=== PATIENT | male | born 1945 | race Caucasian/White ===

== ENCOUNTER 2021-09-12 15:48 | Inpatient (IN) ==
[2021-09-12] MEDS ORDERED: 0.9 % Sodium Chloride 1,000 ML IVC ONE (16:13)
[2021-09-12 16:55] LABS: Basophils % 0.3 %; Eosinophils # 0.1 K/mcL (0.0-0.6); Hematocrit 41.3 % (37.5-50.1); Hemoglobin 13.9 g/dL (12.9-16.9); Immature Granulocytes % 0.4 % (0-4); Lymphocytes # 0.8 K/mcL (0.6-4.6); Lymphocytes % 5.7 %; Mean Corpuscular HGB Conc 33.7 g/dL (31.6-35.5); Mean Corpuscular Hemoglobin 32.9 pg (28.0-33.3); Mean Corpuscular Volume 97.6 fL (83.0-100.0); Mean Platelet Volume 9.9 fL (9.4-12.4); Monocytes % 7.1 %; Neutrophils # 11.5 K/mcL (1.6-8.9); Platelet Count 220 K/mcL (140-400); Red Blood Count 4.23 M/mcL (4.19-5.50); Red Cell Distribution Width 13.2 % (11.5-14.5); Segmented Neutrophils % 85.5 %; White Blood Count 13.4 K/mcL (4.3-11.1)
[2021-09-12 17:02] LABS: Bacteria,Urine Few per hpf (None-Few); Bilirubin,Urine Negative (Negative); Blood,Urine Negative (Negative); Clarity,Urine Clear (Clear); Color,Urine Yellow (Yellow); Glucose,Urine (UA) Normal (Normal); Ketones,Urine Negative (Negative); Leukocyte Esterase,Urine Negative (Negative); Mucus,Urine Few per lpf (None-Few); Nitrite,Urine Negative (Negative); Protein,Urine 50 mg/dL (Neg-Trace); RBC,Urine 15-30 per hpf (0-3); Specific Gravity,Urine 1.024 (1.010-1.025); Squamous Epithelial Cell,Urine Few per hpf (None-Few); WBC,Urine 0-3 per hpf (0-3)
[2021-09-12 17:03] LABS: INR 1.3; Prothrombin Time 14.6 Seconds (9.4-12.1)
[2021-09-12 17:06] LABS: Activated Partial Thrombo Time 35.3 Seconds (26.0-36.0)
[2021-09-12 17:08] LABS: Alanine Aminotransferase 13 Units/L (7-52); Albumin 3.4 g/dL (3.5-5.7); Alkaline Phosphatase 101 Units/L (34-104); Aspartate Amino Transferase 16 Units/L (13-39); BUN/Creatinine Ratio 15 (6-26); Bilirubin,Direct 0.4 mg/dL (0.0-0.2); Bilirubin,Indirect 0.9 mg/dL (0.0-1.0); Bilirubin,Total 1.3 mg/dL (0.3-1.0); Blood Urea Nitrogen 16 mg/dL (8-23); Calcium 8.9 mg/dL (8.6-10.3); Carbon Dioxide 27 mEq/L (23-29); Chloride 98 mEq/L (98-107); Globulin 3.5 g/dL (2.4-3.5); Glucose 170 mg/dL (70-105); Magnesium 1.8 mg/dL (1.6-2.6); Osmolality,Calculated 279 (280-300); Potassium 4.1 mEq/L (3.5-5.1); Sodium 132 mEq/L (136-145); Total Protein 6.9 g/dL (6.4-8.9); Troponin I < 0.03 ng/mL (< 0.04); eGFR For African Americans > 60 (> 60); eGFR For Non-African Americans > 60 (> 60)
[2021-09-12] MEDS ORDERED: Ipratropium/Albuterol Neb 3 ML IH ONE (17:32)
[2021-09-12] MEDS ORDERED: *HR* OxyCODONE/APAP 7.5/325 TABLET PO ONE (17:33)
[2021-09-12 17:36] LABS: Adenovirus Not Detected (Not Detect); Bordetella Pertussis Not Detected (Not Detect); Chlamydophila pneumoniae Not Detected (Not Detect); Coronavirus 229E Not Detected (Not Detect); Coronavirus HKU1 Not Detected (Not Detect); Coronavirus NL63 Not Detected (Not Detect); Coronavirus OC43 Not Detected (Not Detect); Human Metapneumovirus Not Detected (Not Detect); Human Rhinovirus/Enterovirus DETECTED (Not Detect); Influenza A Subtype 2009 H1 Not Detected (Not Detect); Influenza B Not Detected (Not Detect); Mycoplasma pneumoniae Not Detected (Not Detect); Parainfluenza Virus 1 Not Detected (Not Detect); Parainfluenza Virus 2 Not Detected (Not Detect); Parainfluenza Virus 3 Not Detected (Not Detect); Parainfluenza Virus 4 Not Detected (Not Detect); Respiratory Syncytial Virus Not Detected (Not Detect); SARS-CoV-2 Not Detected (Not Detect)
[2021-09-12] MEDS ORDERED: Acetaminophen 325 MG TABLET PO PRN (18:25)
[2021-09-12] MEDS ORDERED: Naloxone 0.4 MG/ML INJ IVP PRN (18:25)
[2021-09-12] MEDS ORDERED: Ondansetron 4 MG/2 ML VIAL IVP PRN (18:25)
[2021-09-12] MEDS ORDERED: D5% in Water 1,000 ML IVC PRN (21:14)
[2021-09-12] MEDS ORDERED: Dextrose Gel 15 GM/37.5 ML TUBE PO PRN ×2 (21:14)
[2021-09-12] MEDS ORDERED: *HR* Dextrose 50 % in Water (Syg) 50 ML SYRINGE IVP PRN (21:14)
[2021-09-12] MEDS ORDERED: *HR* Metoprolol 5 MG/5 ML VIAL IVP ONE (21:26)
[2021-09-12] MEDS: Metoprolol XL (24 HR) Succ 25 MG TAB.ER.24H PO SCH (21:50)
[2021-09-12] MEDS: Apixaban 5 MG TABLET PO SCH (21:50)
[2021-09-12] MEDS ORDERED: Perflutren Lipid Microsphere 1.3 ML in 0.9 % Sodium Chloride 8.7 ML IVP PRN (22:03)
[2021-09-13] MEDS ORDERED: 0.9 % Sodium Chloride 500 ML IVC ONE (00:04)
[2021-09-13] MEDS ORDERED: Amiodarone Premix 360 MG/200 ML BAG IVC ONE (01:55)
[2021-09-13] MEDS ORDERED: Amiodarone Premix 150 MG/100 ML BAG IVPB ONE (01:55)
[2021-09-13] MEDS ORDERED: 0.9 % Sodium Chloride 1,000 ML IVC ONE (05:00)
[2021-09-13 05:28] LABS: Troponin I < 0.03 ng/mL (< 0.04)
[2021-09-13 05:31] LABS: Basophils # 0.1 K/mcL (0.0-0.2); Basophils % 0.4 %; Eosinophils # 0.2 K/mcL (0.0-0.6); Eosinophils % 1.2 %; Hematocrit 39.6 % (37.5-50.1); Hemoglobin 13.3 g/dL (12.9-16.9); Immature Granulocytes % 0.7 % (0-4); Lymphocytes % 7.3 %; Mean Corpuscular HGB Conc 33.6 g/dL (31.6-35.5); Mean Corpuscular Hemoglobin 32.2 pg (28.0-33.3); Mean Corpuscular Volume 95.9 fL (83.0-100.0); Mean Platelet Volume 10.5 fL (9.4-12.4); Monocytes # 1.3 K/mcL (0.0-1.3); Monocytes % 8.8 %; Neutrophils # 11.6 K/mcL (1.6-8.9); Nucleated Red Blood Cells 0.1 /100 WBC (0); Platelet Count 219 K/mcL (140-400); Red Blood Count 4.13 M/mcL (4.19-5.50); Red Cell Distribution Width 13.3 % (11.5-14.5); Segmented Neutrophils % 81.6 %; White Blood Count 14.2 K/mcL (4.3-11.1)
[2021-09-13 05:38] LABS: BUN/Creatinine Ratio 14 (6-26); Blood Urea Nitrogen 15 mg/dL (8-23); Calcium 8.3 mg/dL (8.6-10.3); Carbon Dioxide 22 mEq/L (23-29); Chloride 102 mEq/L (98-107); Glucose 183 mg/dL (70-105); Magnesium 1.8 mg/dL (1.6-2.6); Osmolality,Calculated 282 (280-300); Potassium 4.2 mEq/L (3.5-5.1); Sodium 133 mEq/L (136-145); eGFR For African Americans > 60 (> 60); eGFR For Non-African Americans > 60 (> 60)
[2021-09-13] MEDS ORDERED: Amiodarone Premix 360 MG/200 ML BAG IVC SCH (07:55)
[2021-09-13] MEDS: Apixaban 5 MG TABLET PO SCH ×2 (08:05→20:09)
[2021-09-13] MEDS: Metoprolol XL (24 HR) Succ 25 MG TAB.ER.24H PO SCH ×2 (08:05→20:09)
[2021-09-13] MEDS: Venlafaxine XR (24 HR) 75 MG CAP.ER.24H PO SCH (08:05)
[2021-09-13] MEDS: Insulin LISPRO 300 UNITS/3 ML VIAL SUBQ SCH ×4 (08:05→20:09)
[2021-09-13] MEDS ORDERED: Gabapentin 300 MG CAPSULE PO SCH (09:00)
[2021-09-13] MEDS ORDERED: Nystatin POWDER 30 GM BOTTLE TP PRN (11:01)
[2021-09-13] MEDS: Gabapentin 300 MG CAPSULE PO SCH ×2 (15:03→20:08)
[2021-09-13] MEDS: Melatonin 3 MG TABLET PO SCH (20:08)
[2021-09-13] MEDS: Finasteride 5 MG TABLET PO SCH (20:08)
[2021-09-13] MEDS ORDERED: Apixaban 5 MG TABLET PO SCH (21:00)
[2021-09-14] MEDS: GuaiFENesin Liq 200 MG/10 ML UDC PO PRN (01:19)
[2021-09-14 06:09] LABS: Hematocrit 37.6 % (37.5-50.1); Hemoglobin 12.7 g/dL (12.9-16.9); Mean Corpuscular HGB Conc 33.8 g/dL (31.6-35.5); Mean Corpuscular Hemoglobin 32.5 pg (28.0-33.3); Mean Corpuscular Volume 96.2 fL (83.0-100.0); Mean Platelet Volume 10.3 fL (9.4-12.4); Platelet Count 209 K/mcL (140-400); Red Blood Count 3.91 M/mcL (4.19-5.50); Red Cell Distribution Width 13.2 % (11.5-14.5); White Blood Count 14.4 K/mcL (4.3-11.1)
[2021-09-14 06:16] LABS: BUN/Creatinine Ratio 18 (6-26); Blood Urea Nitrogen 16 mg/dL (8-23); Calcium 8.5 mg/dL (8.6-10.3); Carbon Dioxide 26 mEq/L (23-29); Chloride 104 mEq/L (98-107); Glucose 185 mg/dL (70-105); Osmolality,Calculated 284 (280-300); Potassium 4.4 mEq/L (3.5-5.1); Sodium 134 mEq/L (136-145); eGFR For African Americans > 60 (> 60); eGFR For Non-African Americans > 60 (> 60)
[2021-09-14] MEDS: Insulin LISPRO 300 UNITS/3 ML VIAL SUBQ SCH ×4 (07:43→20:09)
[2021-09-14] MEDS: Venlafaxine XR (24 HR) 75 MG CAP.ER.24H PO SCH (07:45)
[2021-09-14] MEDS: Gabapentin 300 MG CAPSULE PO SCH ×3 (07:46→20:24)
[2021-09-14] MEDS: Metoprolol XL (24 HR) Succ 25 MG TAB.ER.24H PO SCH ×2 (07:52→20:23)
[2021-09-14] MEDS: Apixaban 5 MG TABLET PO SCH ×2 (07:52→20:23)
[2021-09-14] MEDS ORDERED: Venlafaxine XR (24 HR) 75 MG CAP.ER.24H PO SCH (09:00)
[2021-09-14] MEDS: Melatonin 3 MG TABLET PO SCH (20:23)
[2021-09-14] MEDS: Finasteride 5 MG TABLET PO SCH (20:23)
[2021-09-15 05:59] LABS: BUN/Creatinine Ratio 17 (6-26); Blood Urea Nitrogen 15 mg/dL (8-23); Calcium 8.6 mg/dL (8.6-10.3); Carbon Dioxide 26 mEq/L (23-29); Chloride 100 mEq/L (98-107); Glucose 178 mg/dL (70-105); Osmolality,Calculated 279 (280-300); Potassium 4.2 mEq/L (3.5-5.1); Sodium 132 mEq/L (136-145); eGFR For African Americans > 60 (> 60); eGFR For Non-African Americans > 60 (> 60)
[2021-09-15 06:22] LABS: Hematocrit 37.9 % (37.5-50.1); Mean Corpuscular HGB Conc 33.2 g/dL (31.6-35.5); Mean Corpuscular Hemoglobin 31.9 pg (28.0-33.3); Mean Corpuscular Volume 95.9 fL (83.0-100.0); Mean Platelet Volume 9.8 fL (9.4-12.4); Platelet Count 269 K/mcL (140-400); Red Blood Count 3.95 M/mcL (4.19-5.50)
[2021-09-15 06:23] LABS: Hemoglobin 12.6 g/dL (12.9-16.9); White Blood Count 15.3 K/mcL (4.3-11.1)
[2021-09-15] MEDS: Insulin LISPRO 300 UNITS/3 ML VIAL SUBQ SCH ×4 (08:50→22:08)
[2021-09-15] MEDS: Metoprolol XL (24 HR) Succ 25 MG TAB.ER.24H PO SCH ×2 (08:50→20:48)
[2021-09-15] MEDS: Venlafaxine XR (24 HR) 75 MG CAP.ER.24H PO SCH (08:50)
[2021-09-15] MEDS: Apixaban 5 MG TABLET PO SCH ×2 (08:50→20:47)
[2021-09-15] MEDS: Gabapentin 300 MG CAPSULE PO SCH ×3 (08:50→20:47)
[2021-09-15] MEDS: GuaiFENesin Liq 200 MG/10 ML UDC PO PRN (16:49)
[2021-09-15] MEDS: Finasteride 5 MG TABLET PO SCH (20:48)
[2021-09-15] MEDS: Melatonin 3 MG TABLET PO SCH (20:48)
[2021-09-16 06:09] LABS: Hematocrit 39.1 % (37.5-50.1); Hemoglobin 12.8 g/dL (12.9-16.9); Mean Corpuscular HGB Conc 32.7 g/dL (31.6-35.5); Mean Corpuscular Hemoglobin 31.2 pg (28.0-33.3); Mean Corpuscular Volume 95.4 fL (83.0-100.0); Mean Platelet Volume 9.7 fL (9.4-12.4); Platelet Count 280 K/mcL (140-400); Red Cell Distribution Width 13.1 % (11.5-14.5); White Blood Count 15.7 K/mcL (4.3-11.1)
[2021-09-16 06:15] LABS: BUN/Creatinine Ratio 18 (6-26); Blood Urea Nitrogen 16 mg/dL (8-23); Calcium 8.8 mg/dL (8.6-10.3); Carbon Dioxide 24 mEq/L (23-29); Chloride 100 mEq/L (98-107); Glucose 173 mg/dL (70-105); Osmolality,Calculated 281 (280-300); Potassium 4.1 mEq/L (3.5-5.1); Sodium 133 mEq/L (136-145); eGFR For African Americans > 60 (> 60); eGFR For Non-African Americans > 60 (> 60)
[2021-09-16] MEDS: Venlafaxine XR (24 HR) 75 MG CAP.ER.24H PO SCH (08:20)
[2021-09-16] MEDS: Apixaban 5 MG TABLET PO SCH ×2 (08:20→20:30)
[2021-09-16] MEDS: Metoprolol XL (24 HR) Succ 25 MG TAB.ER.24H PO SCH ×2 (08:20→20:30)
[2021-09-16] MEDS: Gabapentin 300 MG CAPSULE PO SCH ×3 (08:20→20:29)
[2021-09-16] MEDS: Insulin LISPRO 300 UNITS/3 ML VIAL SUBQ SCH ×4 (08:22→20:31)
[2021-09-16] MEDS: Benzonatate 100 MG CAPSULE PO PRN (16:10)
[2021-09-16] MEDS: Finasteride 5 MG TABLET PO SCH (20:30)
[2021-09-16] MEDS: Melatonin 3 MG TABLET PO SCH (20:30)
[2021-09-17 03:00] LABS: Hematocrit 36.6 % (37.5-50.1); Hemoglobin 12.5 g/dL (12.9-16.9); Mean Corpuscular HGB Conc 34.2 g/dL (31.6-35.5); Mean Corpuscular Hemoglobin 32.8 pg (28.0-33.3); Mean Corpuscular Volume 96.1 fL (83.0-100.0); Mean Platelet Volume 9.4 fL (9.4-12.4); Platelet Count 288 K/mcL (140-400); Red Blood Count 3.81 M/mcL (4.19-5.50); Red Cell Distribution Width 13.2 % (11.5-14.5); White Blood Count 14.1 K/mcL (4.3-11.1)
[2021-09-17 03:18] LABS: BUN/Creatinine Ratio 18 (6-26); Blood Urea Nitrogen 17 mg/dL (8-23); Calcium 8.5 mg/dL (8.6-10.3); Carbon Dioxide 26 mEq/L (23-29); Chloride 100 mEq/L (98-107); Glucose 166 mg/dL (70-105); Osmolality,Calculated 281 (280-300); Potassium 3.9 mEq/L (3.5-5.1); Sodium 133 mEq/L (136-145); eGFR For African Americans > 60 (> 60); eGFR For Non-African Americans > 60 (> 60)
[2021-09-17] MEDS: Benzonatate 100 MG CAPSULE PO PRN (03:54)
[2021-09-17] MEDS: GuaiFENesin Liq 200 MG/10 ML UDC PO PRN ×2 (08:27→14:51)
[2021-09-17] MEDS: Metoprolol XL (24 HR) Succ 25 MG TAB.ER.24H PO SCH ×2 (08:27→20:03)
[2021-09-17] MEDS: Gabapentin 300 MG CAPSULE PO SCH ×3 (08:27→20:03)
[2021-09-17] MEDS: Venlafaxine XR (24 HR) 75 MG CAP.ER.24H PO SCH (08:27)
[2021-09-17] MEDS: Apixaban 5 MG TABLET PO SCH ×2 (08:27→20:03)
[2021-09-17] MEDS: Insulin LISPRO 300 UNITS/3 ML VIAL SUBQ SCH ×4 (08:29→20:06)
[2021-09-17 16:08] LABS: Adenovirus Not Detected (Not Detect); Bordetella Pertussis Not Detected (Not Detect); Chlamydophila pneumoniae Not Detected (Not Detect); Coronavirus 229E Not Detected (Not Detect); Coronavirus HKU1 Not Detected (Not Detect); Coronavirus NL63 Not Detected (Not Detect); Coronavirus OC43 Not Detected (Not Detect); Human Metapneumovirus Not Detected (Not Detect); Human Rhinovirus/Enterovirus Not Detected (Not Detect); Influenza A Subtype 2009 H1 Not Detected (Not Detect); Influenza B Not Detected (Not Detect); Mycoplasma pneumoniae Not Detected (Not Detect); Parainfluenza Virus 1 Not Detected (Not Detect); Parainfluenza Virus 2 Not Detected (Not Detect); Parainfluenza Virus 3 Not Detected (Not Detect); Parainfluenza Virus 4 Not Detected (Not Detect); Respiratory Syncytial Virus Not Detected (Not Detect); SARS-CoV-2 Not Detected (Not Detect)
[2021-09-17 18:58] VITALS: BP 163/89; PULSE 95; TEMP 98.6; O2SAT 95
[2021-09-17] MEDS: Finasteride 5 MG TABLET PO SCH (20:02)
[2021-09-17] MEDS: Melatonin 3 MG TABLET PO SCH (20:03)
== END 2021-09-17 22:50 | disposition home or self-care (01) | DRG 312 ==
LOC: EMEROOARM 15:48 → 3ANU 15:48 → SUATTDRO 18:42 → 3ANU 20:02 → 2NNU 09-13 02:10 → 3ANU 09-15 22:36
PROVIDERS: ADMIT Pharmacist; ATTEND Family Medicine